=== PATIENT | male | born 2000 | race Caucasian/White ===

== ENCOUNTER 2023-11-11 08:00 | Outpatient (CLI) | payer OTHER | END 2023-11-11 23:59 | disposition home or self-care (01) | LOC: EDSEX → LAB.N 08:00 | PROVIDERS: ATTEND Physician Assistant Medical | DX: J02.9 Acute pharyngitis, unspecified (principal) | CPT/HCPCS: 87070 ==

== ENCOUNTER 2023-11-14 10:00 | Outpatient (CLI) | payer OTHER ==
[2023-11-14 12:06] LABS: INFECTIOUS MONONUCLEOSIS POSITIVE (Negative)
== END 2023-11-14 10:15 | disposition home or self-care (01) ==
LOC: LAB.N 10:00
PROVIDERS: ATTEND Physician Assistant
DX: J02.9 Acute pharyngitis, unspecified (principal)
CPT/HCPCS: 86308; 87070

== ENCOUNTER 2023-11-21 14:17 | Emergency (ER) | payer OTHER ==
[2023-11-21 14:34] VITALS: O2SAT 98
--- NOTE | 2023-11-21 15:13 | ED Physician Documentation ---
PD HPI SKIN - Stated complaint Stated Complaint: ALLERGIC RX - Chief complaint Chief Complaint: Allergic Rx - History obtained from History obtained from: Patient - Additional information Additional information: Took amox x a few days and stopped then developed itchy rash lindy trunk. Throat better. No SOA/wheeze. PD PAST MEDICAL HISTORY - Past Medical History Past Medical History: No Cardiovascular: None Respiratory: None Neuro: None Endocrine/Autoimmune: None GI: None : None HEENT: None Psych: None Musculoskeletal: None Derm: None - Past Surgical History Past Surgical History: No - Present Medications Home Medications: Ambulatory Orders Medication Instructions Recorded Confirmed diphenhydrAMINE [Benadryl] 25 mg PO Q4-6H PRN #15 cap 11/21/23 predniSONE [Deltasone] 60 mg PO DAILY 5 Days #15 tablet 11/21/23 - Allergies Allergies/Adverse Reactions: Allergies Allergy/AdvReac Type Severity Reaction Status Date / Time No Known Drug Allergies Allergy Verified 11/21/23 14:20 - Social History Does the pt smoke?: No Smoking Status: Never smoker Does the pt drink ETOH?: No Does the pt have substance abuse?: No - Immunizations Immunizations are current?: Yes - POLST Patient has POLST: No PD ED PE NORMAL - Vitals Vital signs reviewed: Yes - General General: Alert and oriented X 3, No acute distress - Derm Derm: Other (morbilliform rash on trunk spares hands and face.) - Neuro Neuro: Alert and oriented X 3 Results - Vitals Vitals: Vital Signs - 24 hr 11/21/23 14:20 Temperature 36.8 C Heart Rate 80 Respiratory 16 Rate Blood Pressure 132/80 H O2 Saturation 98 Oxygen O2 Source Room air Departure - Departure Disposition: 01 Home, Self Care Clinical Impression: Drug eruption Condition: Good Record reviewed to determine appropriate education?: Yes Instructions: ED Drug React Allergic Prescriptions: diphenhydrAMINE [Benadryl] 25 mg PO Q4-6H PRN #15 cap PRN Reason: Itching predniSONE [Deltasone] 60 mg PO DAILY 5 Days #15 tablet Comments: I sent your prescriptions electronically to [facility] Should be better in a few days, return if worse. 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 I would be hesitant to take amoxicillin in the future.
[2023-11-21] MEDS: predniSONE 20 MG TABLET PO STA (15:24)
[2023-11-21 15:31] VITALS: BP 128/78
== END 2023-11-21 15:25 | disposition home or self-care (01) ==
LOC: ED 14:17
DX: L27.0 Generalized skin eruption due to drugs and medicaments taken internally (principal); T36.0X5A Adverse effect of penicillins, initial encounter
CPT/HCPCS: 99283; J7512